=== PATIENT | female | born 1965 | race Caucasian/White ===

== ENCOUNTER 2017-07-31 22:33 | Observation (INO) | payer BC ==
[~2017-07-31] VITALS: Ht 152.4 cm; Wt 86.4 kg
[~2017-07-31 22:33] MED LIST: AZIT250T3 PO; AZIT500T2 PO; CIPR-9 PO; LEVO50TA4 PO; NAPR500 PO; TYLE325T PO
[2017-07-31] MEDS ORDERED: NALOXONE HCL 0.4 MG/ML AMP IV PUSH PRN (23:15)
[2017-07-31] MEDS: methylPREDNISolone SOD SUCC 40 MG/1 ML VIAL IV PUSH SCH (23:37)
[2017-07-31] MEDS: AMPICILLIN-SULBACTAM INJ 3 GM in SODIUM CHLORIDE 0.9% INJ 100 ML IV SCH (23:37)
[2017-07-31] MEDS: ONDANSETRON HCL 4 MG/2 ML VIAL IVP PRN (23:38)
[2017-07-31] MEDS: SODIUM CHLORIDE 0.9% FLUSH 10 ML FLUSH IV FLUSH PRN (23:38)
[2017-07-31] MEDS: SODIUM CHLOR 0.9% 1000 ML INJ 1,000 ML IV SCH (23:41)
[2017-08-01] VITALS: BP 125/88; PULSE 73; RESP 20; TEMP 98.4; O2SAT 95
[2017-08-01] MEDS ORDERED: BISACODYL 10 MG SUPP RECTAL PRN (01:00)
[2017-08-01] MEDS ORDERED: MAGNESIUM HYDROXIDE SUSP 30 ML CUP PO PRN (01:00)
[2017-08-01] MEDS ORDERED: LACTULOSE SYRUP 20 GM/30 ML CUP PO PRN (01:00)
[2017-08-01] MEDS ORDERED: SENNOSIDES 8.6 MG TAB PO PRN (01:00)
[2017-08-01] MEDS: SODIUM CHLORIDE 0.9% FLUSH 10 ML FLUSH IV FLUSH PRN ×2 (01:17→05:58)
[2017-08-01] MEDS: KETOROLAC TROMETHAMINE 30 MG/ML (IVP) VIAL IV PUSH PRN ×4 (01:17→20:57)
[2017-08-01] MEDS: methylPREDNISolone SOD SUCC 40 MG/1 ML VIAL IV PUSH SCH (05:57)
[2017-08-01] MEDS: AMPICILLIN-SULBACTAM INJ 3 GM in SODIUM CHLORIDE 0.9% INJ 100 ML IV SCH ×3 (05:58→16:38)
[2017-08-01 07:54] LABS: CALCIUM 8.7 MG/DL (8.5-10.1)
[2017-08-01 07:55] LABS: BICARBONATE 23.4 MEQ/L (21.0-32.0)
[2017-08-01 07:58] LABS: CREATININE 0.57 MG/DL (0.50-1.00)
[2017-08-01 08:00] VITALS: BP 139/69; PULSE 68; RESP 17; TEMP 97.9; O2SAT 95
[2017-08-01] MEDS: SODIUM CHLORIDE 0.9% FLUSH 10 ML FLUSH IV FLUSH SCH ×2 (08:22→20:56)
[2017-08-01] MEDS: SODIUM CHLOR 0.9% 1000 ML INJ 1,000 ML IV SCH ×2 (08:24→20:56)
[2017-08-01 08:29] LABS: AUTOMATED NEUTROPHIL # 6.7 TH/MM3 (1.8-7.7); BASOPHIL % 0.1 % (0.0-2.0); HEMATOCRIT 38.7 % (35.0-46.0); HEMOGLOBIN 12.7 GM/DL (11.6-15.3); LYMPH % 14.7 % (9.0-44.0); LYMPHOCYTE # 1.2 TH/MM3 (1.0-4.8); MEAN CELL VOLUME 89.8 FL (80.0-100.0); MEAN CORPUSCULAR HEMOGLOBIN 29.5 PG (27.0-34.0); MEAN CORPUSCULAR HGB CONC 32.8 % (32.0-36.0); MEAN PLATELET VOLUME 9.1 FL (7.0-11.0); MONOCYTE # 0.1 TH/MM3 (0-0.9); NEUT % 84.2 % (16.0-70.0); PLATELET COUNT 304 TH/MM3 (150-450); RED BLOOD COUNT 4.31 MIL/MM3 (4.00-5.30); RED CELL DISTRIBUTION WIDTH 13.2 % (11.6-17.2)
[2017-08-01] MEDS: ONDANSETRON HCL 4 MG/2 ML VIAL IVP PRN ×2 (08:34→20:57)
[2017-08-01] MEDS: LEVOTHYROXINE SODIUM 50 MCG TAB PO SCH (09:30)
--- NOTE | 2017-08-01 09:32 | HHI.HP ---
[facility] Service [facility] Primary Care Physician Non-Staff Admission Diagnosis Diagnoses: Chief Complaint: ear and throat pain Travel History International Travel<30 Days: No Contact w/Intl Traveler <30 Da: No Traveled to Known Affected Are: No History of Present Illness 51-year-old female who was admitted for intractable ear and throat pain as well as dysphagia. Patient reports that after being discharged from the ER earlier yesterday for ear and throat pain (being diagnosed with chronic right-sided mastoiditis), she went home took her newly prescribed antibiotics and some naproxen but felt that the pills actually got stuck in her throat even with water. She says she started to massage her neck with a warm compress and eventually the pills went down. Says that she could taste the pills in the back of her throat when they initially got stuck. About 10 minutes later however she says she had a first round of dry heaving and vomiting. This was followed by a moment of calm and then a second round of dry heaving and vomiting which significantly exacerbated her pre-existing right-sided neck and ear pain. Said that the pain was strong enough to make her cry, felt like an ice pick was going into her ear. Her recent CTs including her head and neck showed some lymphadenopathy and chronic mastoiditis but no abscess has been reported. Patient was started on antibiotics in the emergency room again as well as IV Dilaudid and steroids. Says her pain is much better this AM. Patient has said that for the last 2-3 weeks she is felt that there is some type of food items stuck in her throat but has been able to manage her symptoms until now. Per 2nd ER encounter visit note from last night: "presents to the emergency department with 1 week of sore throat and right ear pain. Her pain is severe, constant, and associated with nausea and chills. 3 days ago she was started on azithromycin because she had a faintly positive strep test at an urgent care. Last evening she was seen in the emergency department and had a dry CT of her head which demonstrated chronic mastoiditis. She was given a dose of IV Rocephin and discharged on ciprofloxacin. She said that last night with Toradol her pain resolved by overnight and throughout the day her pain has been getting worse. She said the pain started in her throat but has progressed to her right ear. She's never had pain like this before and she is never been diagnosed with mastoiditis in the past. She has been nauseous and has been having difficulty keeping medication down because she's been vomiting this morning." Review of Systems Except as stated in HPI: all other systems reviewed are Neg Past Family Social History Past Medical History Achalasia GERD Hypothyroidism Past Surgical History Heller myotomy, POEM esophageal surgery Allergies: Coded Allergies: codeine (Verified Allergy, Severe, Headache, 07/31/17) Uncoded Allergies: Narcotics (Adverse Reaction, Severe, Headache, 07/31/17) Family History Breast cancer Social History Lifelong history of smoking, drinks 1-6 alcoholic drinks a few times a month socially Physical Exam Vital Signs Vital Signs Date Time Temp Pulse Resp B/P (MAP) Pulse Ox O2 Delivery O2 Flow Rate FiO2 08/01/17 08:00 97.9 68 17 139/69 (92) 95 08/01/17 00:00 98.4 73 20 125/88 (100) 95 Physical Exam VS: afebrile GENERAL: Sitting up in bed, no acute distress SKIN: Warm and dry. EYES: No scleral icterus. No injection or drainage. ENT: Significantly erythematous right-sided soft palate and oropharynx; has TTP over right submandibular region with no distinct discernible mass. BL TMs intact , no erythema. CARDIOVASCULAR: Regular rate and rhythm. no murmurs RESPIRATORY: No accessory muscle use. Clear to auscultation. Breath sounds equal bilaterally. GASTROINTESTINAL: Abdomen soft, non-tender, nondistended. Extremities: No clubbing, cyanosis, or edema. No obvious deformities. MUSCULOSKELETAL: adequate muscle bulk and tone for age and habitus NEUROLOGICAL: Awake and alert. No obvious cranial nerve deficits. No facial droop nor slurred speech noted. PSYCHIATRIC: Appropriate mood and affect; insight and judgment normal. Laboratory Laboratory Tests Test 08/01/17 06:53 White Blood Count 8.0 Red Blood Count 4.31 Hemoglobin 12.7 Hematocrit 38.7 Mean Corpuscular Volume 89.8 Mean Corpuscular Hemoglobin 29.5 Mean Corpuscular Hemoglobin Concent 32.8 Red Cell Distribution Width 13.2 Platelet Count 304 Mean Platelet Volume 9.1 Neutrophils (%) (Auto) 84.2 Lymphocytes (%) (Auto) 14.7 Monocytes (%) (Auto) 1.0 Eosinophils (%) (Auto) 0.0 Basophils (%) (Auto) 0.1 Neutrophils # (Auto) 6.7 Lymphocytes # (Auto) 1.2 Monocytes # (Auto) 0.1 Eosinophils # (Auto) 0.0 Basophils # (Auto) 0.0 CBC Comment DIFF FINAL Differential Comment Blood Urea Nitrogen 11 Creatinine 0.57 Random Glucose 142 Calcium Level 8.7 Sodium Level 141 Potassium Level 3.9 Chloride Level 110 Carbon Dioxide Level 23.4 Anion Gap 8 Estimat Glomerular Filtration Rate 112 Result Diagram: 08/01/1753 08/01/17652 Caprini VTE Risk Assessment Caprini VTE Risk Assessment: Mod/High Risk (score >= 2) Caprini Risk Assessment Model Point Value = 1 Point Value = 2 Point Value = 3 Point Value = 5 Age 41-60 Minor surgery BMI > 25 kg/m2 Swollen legs Varicose veins or History of unexplained or recurrent spontaneous Oral contraceptives or hormone replacement Sepsis (< 1 month) Serious lung disease, including pneumonia (< 1 month) Abnormal pulmonary function Acute myocardial infarction Congestive heart failure (< 1 month) History of inflammatory bowel disease Medical patient at bed rest Age 61-74 Arthroscopic surgery Major open surgery (> 45 min) Laparoscopic surgery (> 45 min) Malignancy Confined to bed (> 72 hours) Immobilizing plaster cast Central venous access Age >= 75 History of VTE Family history of VTE Factor V Leiden Prothrombin [id number] Lupus anticoagulant Anticardiolipin antibodies Elevated serum homocysteine Heparin-induced thrombocytopenia Other congenital or acquired thrombophilia Stroke (< 1 month) Elective arthroplasty Hip, pelvis, or leg fracture Acute spinal cord injury (< 1 month) Prophylaxis Regimen Total Risk Factor Score Risk Level Prophylaxis Regimen 0-1 Low Early ambulation 2 Moderate Order ONE of the following: *Sequential Compression Device (SCD) *Heparin 5000 units SQ BID 3-4 Higher Order ONE of the following medications: *Heparin 5000 units SQ TID *Enoxaparin/Lovenox 40 mg SQ daily (WT < 150 kg, CrCl > 30 mL/min) *Enoxaparin/Lovenox 30 mg SQ daily (WT < 150 kg, CrCl > 10-29 mL/min) *Enoxaparin/Lovenox 30 mg SQ BID (WT < 150 kg, CrCl > 30 mL/min) AND/OR *Sequential Compression Device (SCD) 5 or more Highest Order ONE of the following medications: *Heparin 5000 units SQ TID (Preferred with Epidurals) *Enoxaparin/Lovenox 40 mg SQ daily (WT < 150 kg, CrCl > 30 mL/min) *Enoxaparin/Lovenox 30 mg SQ daily (WT < 150 kg, CrCl > 10-29 mL/min) *Enoxaparin/Lovenox 30 mg SQ BID (WT < 150 kg, CrCl > 30 mL/min) AND *Sequential Compression Device (SCD) Assessment and Plan Assessment and Plan 51-year-old female being admitted for recurring ear and throat pain and dysphagia throat pain -I suspect acidic irritation of the pt's oropharynx w/ possible mass effect; starting PPI -CT neck from 07/31: "There are numerous enlarged lymph nodes within the neck. These measure up to 1.6 x 1.2 cm in the lower right neck and 1.6 x 0.9 cm in lower left neck. Mildly enlarged submental lymph node also present. There is chronic appearing right mastoid air cell disease. No acute bony abnormalities. Thyroid gland is heterogeneously enlarged with multiple small nodules. No airway obstructing lesions or foreign bodies." acute dysphagia -Most likely multifactorial in origin with patient having history of thyroid nodules, achalasia, and now been diagnosed with lymphadenopathy and with pills getting stuck in throat and urgent ENT evaluation is imperative, continue steroids address any edema. Continue Unasyn. nausea/vomiting - improved by now, unclear if this is from GI source vs ENT source, monitor, zofran prn; will proceed w/ clear liquid diet once cleared by ENT, IVFs continue home Synthroid lovenox Landon Jernigan MD Aug 01, 2017 09:32
[2017-08-01] MEDS ORDERED: DEXAMETHASONE SOD PHOS 4 MG/ML VIAL IV PUSH ONE (09:45)
[2017-08-01] MEDS ORDERED: PANTOPRAZOLE SOD 40 MG DELAYED RELEASE TAB PO ONE (09:45)
[2017-08-01 12:00] VITALS: BP 134/81; PULSE 70; RESP 16; TEMP 95.8; O2SAT 95
[2017-08-01 16:00] VITALS: BP 147/85; PULSE 90; RESP 17; TEMP 98.6; O2SAT 91
[2017-08-01 20:00] VITALS: BP 127/66; PULSE 70; RESP 18; TEMP 98.7; O2SAT 94
[2017-08-02] VITALS: BP 133/78; PULSE 82; RESP 18; TEMP 97.2; O2SAT 96
[2017-08-02] MEDS: AMPICILLIN-SULBACTAM INJ 3 GM in SODIUM CHLORIDE 0.9% INJ 100 ML IV SCH ×2 (00:21→06:35)
[2017-08-02] MEDS: ONDANSETRON HCL 4 MG/2 ML VIAL IVP PRN ×2 (03:48→09:07)
[2017-08-02] MEDS: KETOROLAC TROMETHAMINE 30 MG/ML (IVP) VIAL IV PUSH PRN ×2 (03:49→09:07)
[2017-08-02] MEDS: SODIUM CHLOR 0.9% 1000 ML INJ 1,000 ML IV SCH (03:52)
[2017-08-02] MEDS: LEVOTHYROXINE SODIUM 50 MCG TAB PO SCH (06:36)
[2017-08-02 08:00] VITALS: BP 145/87; PULSE 67; RESP 17; TEMP 97.7; O2SAT 99
[2017-08-02] MEDS: SODIUM CHLORIDE 0.9% FLUSH 10 ML FLUSH IV FLUSH SCH (08:04)
[2017-08-02] MEDS ORDERED: PANTOPRAZOLE SOD 40 MG DELAYED RELEASE TAB PO SCH (09:00)
[2017-08-02 12:00] VITALS: BP 159/89; PULSE 59; RESP 19; TEMP 97.9; O2SAT 100
[2017-08-02] MEDS ORDERED: PRED10PA PO (12:56)
--- NOTE | 2017-08-02 12:57 | HHI.DCPOC ---
Discharge Care Plan Diagnosis: (1) Tonsillitis (2) Benign tumor of throat Goals to Promote Your Health * To prevent worsening of your condition and complications * To maintain your health at the optimal level Directions to Meet Your Goals Take your medications as prescribed Follow your dietary instruction Follow activity as directed Keep your appointments as scheduled Take your immunizations and boosters as scheduled If your symptoms worsen call your PCP, if no PCP go to Urgent Care Center or Emergency Room Smoking is Dangerous to Your Health. Avoid second hand smoke Call the 24-hour hour crisis hotline for domestic abuse at Landon Jernigan MD Aug 02, 2017 12:57
--- NOTE | 2017-08-02 13:24 | HHI.PR ---
Subjective Remarks Nursing denies any deterioration since last night. Patient says her pain is improved, still somewhat sore on the right side of her neck. Discussed case with ENT, noted a suspected tumor on the CT scan Objective Vital Signs Date Time Temp Pulse Resp B/P (MAP) Pulse Ox O2 Delivery O2 Flow Rate FiO2 08/02/17 12:00 97.9 59 19 159/89 (112) 100 08/02/17 08:00 97.7 67 17 145/87 (106) 99 08/02/17 00:00 97.2 82 18 133/78 (96) 96 08/01/17 20:00 98.7 70 18 127/66 (86) 94 08/01/17 16:00 98.6 90 17 147/85 (105) 91 I/O 08/01/17 08/01/17 08/01/17 08/02/17 08/02/17 08/02/17 07:00 15:00 23:00 07:00 15:00 23:00 Intake Total 763 ml 1055 ml 2550 ml 1650 ml Output Total 2 ml Balance 763 ml 1055 ml 2548 ml 1650 ml Intake Oral 2550 ml 365 ml IV Total 763 ml 1055 ml 1285 ml Output Urine Total 2 ml # Voids 7 2 # Bowel Movements 1 Result Diagram: 08/01/17 0653 08/01/17 0653 Objective Remarks Mild right sided submandibular tenderness to palpation, Overall, overall patient appears to be in less distress today. A/P Assessment and Plan Tolerating p.o. intake well. Appreciate ENT or conditions. Patient has met maximal benefit from hospitalization is clinically stable for discharge with p.o. antibiotics and steroids. Patient has been counseled to follow-up with ENT closely for her appointment 2 days from now and a possible biopsy next week with ENT. Landon Jernigan MD Aug 02, 2017 13:24
--- NOTE | 2017-08-02 14:25 | MB ---
cc: Won Espana MD, Hammad M MD DATE: 08/02/2017 REQUESTING PHYSICIAN: Landon Jernigan MD REASON FOR ENT CONSULTATION: Painful throat. HISTORY OF PRESENT ILLNESS: Kell Amato is a 51-year-old woman who was seen twice within 24 hours in the [facility] emergency room complaining of severe pain in her right side of her throat. She reports this began first in her ear and then radiated to her throat. It becomes severe in both locations. She is having difficulty taking her medications. States the pain in her ear felt like an ice pick. It was not associated with change of her hearing. Following her second visit, she was admitted for IV antibiotic therapy and Decadron. She states she has had significant improvement in her throat comfort and swallowing since her admission. 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 She states her left side has been essentially trouble free during this visit. She had her tonsils removed in childhood. PAST MEDICAL HISTORY: Includes achalasia, reflux, hypothyroidism. ALLERGIES: CODEINE AND NARCOTICS. FAMILY HISTORY: Breast cancer. SOCIAL HISTORY: She states she smokes only when she drinks, and she drinks a few times monthly. PHYSICAL EXAMINATION: GENERAL: She is alert and cooperative. ORAL CAVITY: Teeth in good condition. Tongue and mandible normal. OROPHARYNX: Tonsils are surgically absent. No inflammation present. No masses or drainage. NECK: No nodes or masses. Larynx and trachea midline. Normal salivary and thyroid glands. EARS: There are normal auricles, ear canals and tympanic membranes. FLEXIBLE FIBEROPTIC LARYNGOSCOPY: Patent nasal airway. Normal nasopharynx. Hypopharynx shows marked symmetrical enlargement of the lingual tonsils. There is no evidence of lesion, left or right hypopharynx. The larynx appears normal. ASSESSMENT: 1. Lingual tonsillitis. 2. Radiographic evidence of left oropharyngeal malignancy. PLAN: Discussed these findings today with the patient. I advised her that she may have had an infection in her oropharynx and lingual tonsils, or it is possible that the radiographic images are mislabeled. I would like to see her back as an outpatient in the near future and will likely make plans for biopsy of her hypopharynx. I will send her home on Cefzil 250 mg twice a day. MD LEO Best/BROOKS , 01:46 PM , 02:24 PM
== END 2017-08-02 15:52 | disposition home or self-care (01) ==
LOC: PHEDDLT 22:33 → PH3A 22:34
PROVIDERS: ADMIT Hospitalist; ATTEND Hospitalist
DX: D10.9 Benign neoplasm of pharynx, unspecified (principal); J03.90 Acute tonsillitis, unspecified; R13.10 Dysphagia, unspecified; H70.11 Chronic mastoiditis, right ear; J02.9 Acute pharyngitis, unspecified; H92.01 Otalgia, right ear; R68.83 Chills (without fever); R11.2 Nausea with vomiting, unspecified; K21.9 Gastro-esophageal reflux disease without esophagitis; K22.0 Achalasia of cardia; E03.9 Hypothyroidism, unspecified; R59.9 Enlarged lymph nodes, unspecified; Z80.3 Family history of malignant neoplasm of breast; Z88.5 Allergy status to narcotic agent; Z79.2 Long term (current) use of antibiotics; Z79.899 Other long term (current) drug therapy
CPT/HCPCS: 70481; 70491; 80048; 80053; 85025; 87081; 87880; 96361; 96365; 96366; 96375; 96376; 99284; G0378; J0295; J1100; J1170; J1885; J2405; J2920; J2930; J7030; Q9967; 70450; J0696